=== PATIENT | male | born 1945 | race Two or more races ===

== ENCOUNTER 2020-08-21 04:31 | Inpatient (IN) | payer MEDICARE, OTHER ==
[~2020-08-21] VITALS: Ht 162.6 cm; Wt 48.5 kg
--- NOTE | 2020-08-21 04:52 | NUR ---
CHARLEY CONTI FROM [facility] FOR LOW HGb. PER TRANSFER RECORD PT IS ON IV ZOSYN FOR UTI AND PNA AND WAS ALSO ON IVF HYDRATION AT THE FACILITY. PT ALERT AND RESPONSIVE TO QUESTIONS. BREATHING EVENLY. NO SOB. AND HOLDING SATURATION OF 100% ON RA. AFEBRILE (ORAL AND RECTAL) W/ NO C/O PAIN OR DISCOMFORT. PT WAS TRANSFERRED TO BED 16 AND WAS PLACED ON A MONITOR .
--- NOTE | 2020-08-21 04:56 | NUR ---
DR. MENDOZA SPEAKING WITH DR. MAGDI RIVERA
[2020-08-21] MEDS ORDERED: PANT40TA49 PO (05:05)
[2020-08-21] MEDS ORDERED: DOCU-141 PO (05:05)
[2020-08-21] MEDS ORDERED: APIX2.5T PO (05:05)
[2020-08-21] MEDS ORDERED: SIME80TA15 PO (05:05)
[2020-08-21] MEDS ORDERED: ATOR20TA PO (05:05)
[2020-08-21] MEDS ORDERED: ZINC220T4 PO (05:05)
[2020-08-21] MEDS ORDERED: MIRT-121 PO (05:05)
[2020-08-21] MEDS ORDERED: TAMS-12 PO (05:05)
[2020-08-21] MEDS ORDERED: CARB-93 PO (05:05)
[2020-08-21] MEDS ORDERED: ASCO500T87 PO (05:05)
[2020-08-21] MEDS ORDERED: AMLO2.5T4 PO (05:05)
[2020-08-21] MEDS ORDERED: SENN-18 PO (05:05)
[2020-08-21] MEDS ORDERED: MULT-754 PO (05:05)
[2020-08-21 05:29] LABS: BASOPHILS # (AUTO) 0.1 /CMM (0.0-0.2); BASOPHILS % (AUTO) 0.4 % (0.0-2.0); EOSINOPHILS % (AUTO) 0.2 % (0.0-6.0); HEMATOCRIT 24 % (39-51); HEMOGLOBIN 7.8 g/dL (13.5-17.5); LYMPHOCYTES # (AUTO) 1.4 /CMM (0.8-4.8); LYMPHOCYTES % (AUTO) 9.4 % (20.0-44.0); MEAN CORPUSCULAR HGB CONC 33 g/dl (31.0-36.0); MEAN CORPUSCULAR VOLUME 95 fL (80-96); MONOCYTES # (AUTO) 0.5 /CMM (0.1-1.30); MONOCYTES % (AUTO) 3.2 % (2.0-12.0); NEUTROPHILS # (AUTO) 13.1 /CMM (1.8-8.9); NEUTROPHILS % (AUTO) 86.8 % (43.0-81.0); PLATELET COUNT (AUTO) 711 /CMM (150-450); WHITE BLOOD COUNT (AUTO) 15.1 K/uL (4.3-11.0)
[2020-08-21] MEDS ORDERED: IV NS 0.9% 1,000 ML IV ONE (05:30)
[2020-08-21 05:38] LABS: BILIRUBIN,URINE NEGATIVE (NEGATIVE); COLOR,URINE YELLOW (YELLOW); LEUKOCYTE ESTERASE ,URINE LARGE (NEGATIVE); NITRITE, URINE NEGATIVE (NEGATIVE); PH,URINE 8.5 (5.0-8.0); PROTEIN,URINE 100 mg/dl (NEGATIVE); UGLUCOSE NEGATIVE (NEGATIVE); UROBILINOGEN,URINE 0.2 EU/dL (0.2)
[2020-08-21 05:48] LABS: OCCULT BLOOD STOOL NEGATIVE (NEGATIVE)
[2020-08-21 05:49] LABS: RBC,URINE TOO NUMEROUS TO COUN /HPF (0-2); WBC,URINE TOO NUMEROUS TO COUN /HPF (0-3)
[2020-08-21 05:50] LABS: BACTERIA,URINE 3+ /HPF (None Seen); SQUAMOUS EPITHELIAL CELL,UR Few /HPF (None Seen); TRIPLE PHOSPHATE CRYSTAL,UR Many /HPF (None Seen); URINE AMORPHOUS PHOSPHATES Many /HPF (None Seen)
--- NOTE | 2020-08-21 05:51 | NUR ---
tech at bedside for xray
[2020-08-21 06:04] LABS: ALANINE AMINOTRANSFERASE 55 U/L (12-78); ALBUMIN 1.7 g/dL (3.4-5.0); ALKALINE PHOSPHATASE 117 U/L (46-116); ASPARTATE AMINOTRANSFERASE 72 U/L (15-37); BILIRUBIN,DIRECT 0.2 mg/dL (0.0-0.2); BILIRUBIN,TOTAL 0.4 mg/dL (0.2-1.0); CALCIUM, SERUM 8.7 mg/dL (8.5-10.1); CARBON DIOXIDE 23 mmol/L (21-32); CHLORIDE 101 mmol/L (98-107); CREATININE 1.2 mg/dL (0.6-1.3); GLUCOSE 117 mg/dL (74-106); POTASSIUM 3.7 mmol/L (3.5-5.1); SODIUM SERUM 135 mmol/L (136-145); TOTAL PROTEIN, SERUM 7.1 g/dL (6.4-8.2); UREA NITROGEN, BLOOD 31 mg/dL (7-18)
--- NOTE | 2020-08-21 07:43 | NUR ---
RECEIVED REPORT FROM REDD MORENO FOR VINICIO. PT IS AWAKE AND ALERT, NOT IN RESPIRATORY DISTRESS, V/S STABLE, KEPT RESTED AND COMFORTABLE. WILL CONTINUE TO MONITOR.
[2020-08-21] MEDS ORDERED: ACET-868 PO (07:57)
[2020-08-21] MEDS ORDERED: POLY17PO4 PO (07:57)
[2020-08-21] MEDS ORDERED: IPRA3AMP23 IH (07:57)
[2020-08-21] MEDS ORDERED: LIDO30AD10 TP (07:57)
[2020-08-21] MEDS ORDERED: NA P133E RC (07:57)
[2020-08-21] MEDS ORDERED: FINA5TAB11 PO (07:57)
[2020-08-21] MEDS ORDERED: COLL30OI TP (07:57)
[2020-08-21] MEDS ORDERED: SENN-301 PO (07:57)
[2020-08-21] MEDS ORDERED: ARGI1POW13 PO (07:57)
[2020-08-21] MEDS ORDERED: BISA5TAB10 PO (07:57)
[2020-08-21] MEDS ORDERED: HYDR-4384 PO (07:57)
[2020-08-21] MEDS ORDERED: ONDANSETRON HCL/PF 4 MG/2 ML VIAL IVP PRN (08:00)
[2020-08-21] MEDS ORDERED: ACETAMINOPHEN 650 MG/SUPP.RECT RC PRN (08:00)
[2020-08-21] MEDS ORDERED: PANTOPRAZOLE 40 MG VIAL IV SCH (09:00)
[2020-08-21] MEDS: PIPERACILLIN /TAZOBACTAM 3.375 G in IV D5W 50 ML IV SCH ×2 (09:13→15:06)
[2020-08-21] MEDS ORDERED: PANTOPRAZOLE 40 MG VIAL ONE ×2 (09:14→16:40)
[2020-08-21] MEDS: VANCOMYCIN 1 GM in IV D5W 250 ML IV SCH (09:52)
--- NOTE | 2020-08-21 15:54 | NUR ---
SPOKED TO PT'S DAUGHTER HINA THEY AGREED INCASE THE PT NEED BLOOD TRANSFUSION.
[2020-08-21] MEDS: PANTOPRAZOLE 40 MG VIAL IV SCH (16:39)
--- NOTE | 2020-08-21 19:08 | NUR ---
TOOK OVER PT CARE. PT AWAKE IN BED, ON MONITOR AND PULSE OX. VIALS REMAIN STABLE. UPON READING NIDA Jacobs NP'S NOTE, PT WILL HAVE BLOOD TRANSFUSED TO KEEP HGB ABOVE 7. UPON CHECKING BLOOD WORK, PT'S HGB IS 7.8. WILL CONTINUE TO MONITOR.
[2020-08-21] MEDS: IV D5/ 0.9% NACL 1,000 ML IV PRN (19:50)
[2020-08-21] MEDS: MEROPENEM 1 G in IV NS 0.9% 100 ML IV SCH (20:05)
[2020-08-21] MEDS ORDERED: MEROPENEM 500 MG in IV NS 0.9% 50 ML IV SCH (21:00)
--- NOTE | 2020-08-22 00:49 | NUR ---
LF 18G IV INFILTRATED. IV RAC 20G PLACED.
--- NOTE | 2020-08-22 02:13 | NUR ---
PT REPOSITIOEND, VSS.
[2020-08-22 04:37] LABS: BASOPHILS % (AUTO) 0.1 % (0.0-2.0); EOSINOPHILS % (AUTO) 0.1 % (0.0-6.0); HEMATOCRIT 21 % (39-51); HEMOGLOBIN 7.1 g/dL (13.5-17.5); LYMPHOCYTES # (AUTO) 1.2 /CMM (0.8-4.8); LYMPHOCYTES % (AUTO) 7.1 % (20.0-44.0); MEAN CORPUSCULAR HGB CONC 34 g/dl (31.0-36.0); MEAN CORPUSCULAR VOLUME 94 fL (80-96); MONOCYTES # (AUTO) 0.5 /CMM (0.1-1.30); NEUTROPHILS # (AUTO) 14.6 /CMM (1.8-8.9); NEUTROPHILS % (AUTO) 89.7 % (43.0-81.0); PLATELET COUNT (AUTO) 731 /CMM (150-450); RED BLOOD CELL COUNT(AUTO) 2.25 MIL/uL (4.5-6.0); WHITE BLOOD COUNT (AUTO) 16.3 K/uL (4.3-11.0)
[2020-08-22] MEDS: VANCOMYCIN 1 GM in IV D5W 250 ML IV SCH ×2 (04:45→23:14)
[2020-08-22 05:02] LABS: ALANINE AMINOTRANSFERASE 51 U/L (12-78); ALBUMIN 1.6 g/dL (3.4-5.0); ALKALINE PHOSPHATASE 101 U/L (46-116); ASPARTATE AMINOTRANSFERASE 34 U/L (15-37); BILIRUBIN,TOTAL 0.4 mg/dL (0.2-1.0); CALCIUM, SERUM 8.3 mg/dL (8.5-10.1); CARBON DIOXIDE 24 mmol/L (21-32); CHLORIDE 104 mmol/L (98-107); CREATININE 1.2 mg/dL (0.6-1.3); GLUCOSE 93 mg/dL (74-106); PHOSPHORUS 3.5 mg/dL (2.5-4.9); POTASSIUM 3.9 mmol/L (3.5-5.1); SODIUM SERUM 136 mmol/L (136-145); TOTAL PROTEIN, SERUM 6.8 g/dL (6.4-8.2); UREA NITROGEN, BLOOD 29 mg/dL (7-18)
--- NOTE | 2020-08-22 05:14 | NUR ---
PT NOTED TO HAVE MULTIPLE WOUNDS. PT'S WOUNDS WERE CLEANED AND REPACKED.
--- NOTE | 2020-08-22 05:16 | NUR ---
TOTAL PATIENT CARE DONE. PT REPOSITIONED.
--- NOTE | 2020-08-22 06:50 | NUR ---
PT AWAKE, REQUESTING TO BE REPOSITIONED. REPOSITIONED, VITALS STABLE.
--- NOTE | 2020-08-22 07:24 | NUR ---
RECEIVED REPORT FROM REDD AVILA FOR VINICIO. PT IS AAOX2, NOT IN RESPIRATORY DISTRESS, V/S STABLE, KEPT RESTED AND COMFORTABLE. WITH ONGOING IVF NS. WILL CONTINUE TO MONITOR.
[2020-08-22] MEDS: MEROPENEM 1 G in IV NS 0.9% 100 ML IV SCH ×2 (08:20→19:22)
[2020-08-22] MEDS: PANTOPRAZOLE 40 MG VIAL IV SCH ×2 (09:03→17:05)
[2020-08-22] MEDS ORDERED: PANTOPRAZOLE 40 MG VIAL ONE ×2 (09:12→17:06)
--- NOTE | 2020-08-22 09:50 | NUR ---
WOUND CARE NURSE AT BEDSIDE FOR EVAL.
--- NOTE | 2020-08-22 10:22 | NUR ---
WOUND CARE CONSULT: PT PRESENTS WITH BILATERAL HIP PURULENT STAGE 4 ULCERS, SACRAL STAGE 4 ULCER WELL RT FOOT INTACT DEEP TISSUE INJURIES, LEFT LOWER LEG DEEP TISSUE INJURY AND FOUL PURULENT LEFT FOOT WOUND, ALL PRESENT ON ADMISSION. RECOMMEND SURGICAL CONSULT AND DPM CONSULT. DR MOSES AND DR BURNS NOTIFIED OF CONSULT REQUESTS. RECOMMENDATIONS MADE FOR WOUND CARE AND SKIN PROTECTION. DISCUSSED WITH NURSING STAFF. DEFER TO DPM FOR LOWER EXTREMITIES. PT NOTED TO HAVE CONTRACTED EXTREMITIES, MAKING OFFLOADING DIFFICULT. MD IN AGREEMENT WITH PLAN OF CARE.
[2020-08-22] MEDS: Z GUARD REMEDY 2 OZ OINT TP SCH (10:57)
[2020-08-22] MEDS: DAKINS QUARTER STRENGTH (0.125%) 480 ML BOTTLE TOP SCH (10:57)
[2020-08-22] MEDS ORDERED: LIDOCAINE 1%-EPI 1:100,000 50 ML VIAL IJ ONE (13:30)
[2020-08-22] MEDS ORDERED: SILVER NITRATE APPLICATOR 1 EA BOX TP SCH (13:30)
[2020-08-22] MEDS ORDERED: LIDOCAINE 0.5%-EPI 1:200,000 50 ML VIAL ONE (13:32)
--- NOTE | 2020-08-22 13:59 | NUR ---
Masood amaya in ED - 08/22/20 at 1414 by VINICIO AT BEDSIDE FOR L FOOT DEBRIDEMENT.
[2020-08-22] MEDS ORDERED: LIDOCAINE 0.5%-EPI 1:200,000 50 ML VIAL IJ ONE (14:00)
--- NOTE | 2020-08-22 14:00 | NUR ---
AT BEDSIDE FOR L FOOT DEBRIDEMENT.
--- NOTE | 2020-08-22 14:40 | NUR ---
WOUND CULTURE SPECIMEN OBTAINED AND SENT TO LAB.
[2020-08-22] MEDS: IV D5/ 0.9% NACL 1,000 ML IV PRN ×2 (15:17→19:22)
--- NOTE | 2020-08-22 17:08 | NUR ---
RM 312-1
--- NOTE | 2020-08-22 17:15 | NUR ---
REPORT GIVEN TO GILBERT FOR VINICIO.
--- NOTE | 2020-08-22 17:25 | NUR ---
TELE/RN NOTE PATIENT RECEIVED IN A GURNEY FROM ER. TRANSFERED THE PATIENT TO BED. WILL CONTINUE TO MONITOR.
[2020-08-22 18:38] VITALS: BP 112/65
--- NOTE | 2020-08-22 19:06 | NUR ---
RN NOTE THE PATIENT IN BED. ALERT AND ORIENTED X1, ABLE TO MAKE NEEDS KNOWN VERBALLY. DENIES PAIN. IN ROOM AIR AND OXYGEN SATURATION LEVEL IN ROOM AIR IS AT 96%. DENIES SOB. RESPIRATION REGULAR AND UNLABORED. CORKY G 18 PATENT AND SALINE LOCKED. BED LOW AND LOCKED. SIDE RAILS UP X3. CALL LIGHT WITHIN REACH. WILL ENDORSE TO SAP TECHNICAL DEVELOPER.
--- NOTE | 2020-08-22 20:53 | NUR ---
MS/TELE/RN DURING INITIAL SHIFT ROUNDING, PATIENT WAS IN BED AWAKE, ALERT, COMFORTABLE, NO C/O PAIN, NO DISTRESS NOTED, CALL LIGHT IN REACH, FALL PRECAUTIONS PER PROTOCOL, WILL MONITOR.
[2020-08-22 21:25] VITALS: BP 112/63
[2020-08-23 01:32] VITALS: BP 107/69
--- NOTE | 2020-08-23 01:54 | NUR ---
MS/TELE/RN PATIENT IS SLEEPING AT THIS TIME, APPEAR COMFORTABLE, NO SIGNS OF DISTRESS NOTED, CALL LIGHT IN REACH, WILL CONTINUE TO MONITOR.
[2020-08-23 05:22] VITALS: BP 90/52
--- NOTE | 2020-08-23 06:01 | NUR ---
MS/TELE/RN LO CATHETER WAS CHANGED ORDERED BY THE INFECTIOUS DISEASE MD. USED F16, PATIENT TOLERATED THE PROCEDURE. PATIENT IS AWAKE , AND ALERT, NO SIGNS OF DISTRESS NOTED, ALL NEEDS ATTENDED AT THIS TIME, WILL CONTINUE TO MONITOR.
[2020-08-23 07:18] LABS: CALCIUM, SERUM 8.2 mg/dL (8.5-10.1); POTASSIUM 3.1 mmol/L (3.5-5.1)
--- NOTE | 2020-08-23 07:30 | NUR ---
WOUND CARE: PT FOLLOWED BY DR MOSES AND DR BURNS FOR WOUND TREATMENT PLAN. PT IS ON NOMI ISOFLEX LOW AIRLOSS BED. ALL SKIN PROTECTION MEASURES IN PLACE AND DISCUSSED WITH NURSING STAFF. MD IN AGREEMENT WITH PLAN OF CARE.
[2020-08-23 08:00] VITALS: BP 97/56
[2020-08-23] MEDS: DAKINS QUARTER STRENGTH (0.125%) 480 ML BOTTLE TOP SCH ×2 (09:00)
[2020-08-23] MEDS: UREA 10% -AHA 4% CREAM 57 GM TUBE TP SCH (09:00)
[2020-08-23] MEDS: PANTOPRAZOLE 40 MG VIAL IV SCH (09:01)
[2020-08-23] MEDS: MEROPENEM 1 G in IV NS 0.9% 100 ML IV SCH ×2 (09:03→20:03)
[2020-08-23] MEDS: Z GUARD REMEDY 2 OZ OINT TP SCH (09:03)
[2020-08-23] MEDS ORDERED: POTASSIUM CHLORIDE 20 MEQ TAB.PRT.SR PO SCH (11:00)
[2020-08-23] MEDS: POTASSIUM CL. PREMIX PERIPHER. 50 ML IV SCH ×4 (12:50→18:47)
[2020-08-23 16:00] VITALS: BP 107/74
[2020-08-23] MEDS: VANCOMYCIN 1 GM in IV D5W 250 ML IV SCH (16:38)
[2020-08-23] MEDS: IV D5/ 0.9% NACL 1,000 ML IV PRN (18:47)
--- NOTE | 2020-08-23 19:32 | NUR ---
ASBESTOS SHINGLE INSPECTOR NOTES PATIENT IN BED RESTING NO SOB OR ACUTE DISTRESS NOTED. ALL DUE MEDICATIONS ADMINISTERED. ALL NEEDS MET. SAFETY MEASURES IN PLACE. ENDORSED CARE TO PM SHIFT.
--- NOTE | 2020-08-23 20:00 | NUR ---
RN NOTES RECEIVED PT. AWAKE ON BED, A/OX1, SR ON TELE MONITOR HR-68, NOT IN DISTRESS , F/C DRAINING CLEAR YELLOW URINE, NO PAIN NOTED, SIDERAILSUPX2, CONTINUE TO MONITOR
[2020-08-24] VITALS (9 sets, daily range): BP systolic 114–124; BP diastolic 71–80
[2020-08-24 06:36] LABS: BASOPHILS # (AUTO) 0.3 /CMM (0.0-0.2); EOSINOPHILS % (AUTO) 0.5 % (0.0-6.0); HEMATOCRIT 21 % (39-51); LYMPHOCYTES # (AUTO) 1.3 /CMM (0.8-4.8); LYMPHOCYTES % (AUTO) 12.1 % (20.0-44.0); MEAN CORPUSCULAR HGB CONC 33 g/dl (31.0-36.0); MEAN CORPUSCULAR VOLUME 97 fL (80-96); MONOCYTES # (AUTO) 0.4 /CMM (0.1-1.30); NEUTROPHILS # (AUTO) 8.9 /CMM (1.8-8.9); NEUTROPHILS % (AUTO) 80.4 % (43.0-81.0); PLATELET COUNT (AUTO) 631 /CMM (150-450); RED BLOOD CELL COUNT(AUTO) 2.14 MIL/uL (4.5-6.0)
--- NOTE | 2020-08-24 07:00 | NUR ---
RN NOTES AWAKE, MORNING CARE RENDERED, NOT IN DISTRESS, PT. NEEDS ATTENDED
[2020-08-24 07:09] LABS: CALCIUM, SERUM 8.3 mg/dL (8.5-10.1); PHOSPHORUS 2.5 mg/dL (2.5-4.9); POTASSIUM 3.7 mmol/L (3.5-5.1)
[2020-08-24 07:58] LABS: HEMOGLOBIN 6.8 g/dL (13.5-17.5)
[2020-08-24] MEDS: MEROPENEM 1 G in IV NS 0.9% 100 ML IV SCH ×2 (08:59→20:30)
[2020-08-24] MEDS: UREA 10% -AHA 4% CREAM 57 GM TUBE TP SCH (09:02)
[2020-08-24] MEDS: PANTOPRAZOLE 40 MG VIAL IV SCH (09:02)
[2020-08-24] MEDS: DAKINS QUARTER STRENGTH (0.125%) 480 ML BOTTLE TOP SCH ×2 (09:02→09:03)
[2020-08-24] MEDS: Z GUARD REMEDY 2 OZ OINT TP SCH (09:03)
[2020-08-24] MEDS: VANCOMYCIN 1 GM in IV D5W 250 ML IV SCH (10:00)
[2020-08-24 12:05] LABS: BAND % (MANUAL) 1 % (0.0-5.0); LYMPHOCYTES % (MANUAL) 12 % (16-48); MONOCYTES % (MANUAL) 3 % (0-11.0); NEUTROPHILS % (MANUAL) 84 (42-76)
--- NOTE | 2020-08-24 16:15 | NUR ---
DIETARY SERVER NOTES PATIENT WAS SEEN BY DR. MINER, DEBRIDEMENT WAS DONE. PATIENT TOLERATED PROCEDURE WELL. ORDERS GIVEN FOR ONE MORE UNIT OF PRBC. ORDERS NOTED AND CARRIED OUT.
[2020-08-24] MEDS: IV D5/ 0.9% NACL 1,000 ML IV PRN (18:49)
--- NOTE | 2020-08-24 19:30 | NUR ---
RN NOTES RECEIVED PT. AWAKE ON BED, A/OX2, BLOOD TRANSFUSION RUNNING, NO DISTRESS NOTED, SR ON TELE MONITOR HR-65, F/C DRAINING CLEAR YELLOW URINE, CALL LIGHT WITHIN REACH, SIDERAILSUPX2, CONTINUE TO MONITOR
--- NOTE | 2020-08-24 19:31 | NUR ---
PULPER NOTES PATIENT IN BED RESTING . CURRENTLY RECEIVING PRBC. TOLERATING IT WELL. NO SIGNS OF ADVERSE REACTION. ALL DUE MEDICATIONS ADMINISTERED. ALL NEEDS MET. NO ACUTE CHANGED DURING AM SHIFT. ENDORSED CARE TO PM SHIFT.
--- NOTE | 2020-08-24 20:15 | NUR ---
RN NOTES PRBC FINISHED, PT TOLERATING WELL, NO REACTION NOTED
[2020-08-25] VITALS (9 sets, daily range): BP systolic 106–135; BP diastolic 68–83
--- NOTE | 2020-08-25 00:18 | NUR ---
RN NOTES 2ND UNIT PRBC STARTED, V/S STABLE.. WILL CONTINUE TO MONITOR
--- NOTE | 2020-08-25 00:35 | NUR ---
RN NOTES NO REACTION WAS NOTED, , WILL CONTINUE TO MONITOR
--- NOTE | 2020-08-25 03:10 | NUR ---
RN NOTES blood finished at this time, no reaction noted, pt. tolerated it well
[2020-08-25 06:39] LABS: BASOPHILS # (AUTO) 0.1 /CMM (0.0-0.2); BASOPHILS % (AUTO) 0.6 % (0.0-2.0); EOSINOPHILS % (AUTO) 0.5 % (0.0-6.0); HEMATOCRIT 28 % (39-51); HEMOGLOBIN 9.5 g/dL (13.5-17.5); LYMPHOCYTES # (AUTO) 1.2 /CMM (0.8-4.8); LYMPHOCYTES % (AUTO) 11.6 % (20.0-44.0); MEAN CORPUSCULAR HGB CONC 34 g/dl (31.0-36.0); MEAN CORPUSCULAR VOLUME 91 fL (80-96); MONOCYTES # (AUTO) 0.4 /CMM (0.1-1.30); MONOCYTES % (AUTO) 3.8 % (2.0-12.0); NEUTROPHILS # (AUTO) 8.9 /CMM (1.8-8.9); NEUTROPHILS % (AUTO) 83.5 % (43.0-81.0); PLATELET COUNT (AUTO) 558 /CMM (150-450); WHITE BLOOD COUNT (AUTO) 10.7 K/uL (4.3-11.0)
--- NOTE | 2020-08-25 07:00 | NUR ---
RN NOTES AWAKE, MORNING CARE RENDERED, NOT IN DISTRESS, NO PAIN NOTED, CALL LIGHT WITHIN REACH, SIDERAILSUPX2, PT. NEEDS ATTENDED
[2020-08-25 07:11] LABS: CREATININE 0.9 mg/dL (0.6-1.3); MAGNESIUM 1.8 mg/dL (1.8-2.4); PHOSPHORUS 2.3 mg/dL (2.5-4.9); POTASSIUM 3.7 mmol/L (3.5-5.1)
--- NOTE | 2020-08-25 07:45 | NUR ---
RN Opening note Received patient in bed, able to responds all stimuli, Pt does no c/o pain or distress. Skin is warm to touch keep clean/dry, intact IV site on left upper arm g 20, respiratory even and unlabored on room air O2sat 100%. Kept locked bed with elevated HOB for aspiration precaution and ensure airway and lowest bed foe safety. Call light within reach, will continue to monitor.
[2020-08-25] MEDS: MEROPENEM 1 G in IV NS 0.9% 100 ML IV SCH ×2 (08:42→20:59)
[2020-08-25] MEDS: PANTOPRAZOLE 40 MG VIAL IV SCH (08:54)
[2020-08-25] MEDS ORDERED: VANCOMYCIN 1 GM in IV D5W 250 ML IV SCH (09:00)
[2020-08-25] MEDS: DAKINS QUARTER STRENGTH (0.125%) 480 ML BOTTLE TOP SCH ×2 (09:40→09:41)
[2020-08-25] MEDS: Z GUARD REMEDY 2 OZ OINT TP PRN (09:41)
[2020-08-25] MEDS: UREA 10% -AHA 4% CREAM 57 GM TUBE TP SCH (09:41)
[2020-08-25] MEDS: Z GUARD REMEDY 2 OZ OINT TP SCH (09:42)
[2020-08-25] MEDS ORDERED: K PHOS NEUTRAL 250 MG TABLET PO ONE (14:30)
--- NOTE | 2020-08-25 18:34 | NUR ---
RN closing Patient in bed resting, does no appears distress or discomfort. Skin is warm to touch, keep clean/dry, wound dressing changed, intact IV line on left upper arm. Respiratory even and unlabored on room air O2sat 100%. Kept elevated HOB for ensure air way and aspiration precaution and lowest bed for safety. Call light within reach, will endorse shift stacker.
[2020-08-26] VITALS: BP 139/86
[2020-08-26] MEDS: IV D5/ 0.9% NACL 1,000 ML IV PRN (03:02)
--- NOTE | 2020-08-26 03:05 | NUR ---
Found the pt's POLST( DNR) in the chart, needs an order from MD, will endorse to the next shift RN per charge nurse Chante.
--- NOTE | 2020-08-26 03:11 | NUR ---
Unable to do the wound treatments and dressings changed at this time, Dakin's solution bottle is empty, will endorse to the next shift RN, charge nurse aware.
[2020-08-26 04:51] VITALS: BP 142/91
[2020-08-26 06:42] LABS: BASOPHILS # (AUTO) 0.1 /CMM (0.0-0.2); BASOPHILS % (AUTO) 0.8 % (0.0-2.0); HEMATOCRIT 29 % (39-51); HEMOGLOBIN 9.5 g/dL (13.5-17.5); LYMPHOCYTES # (AUTO) 1.5 /CMM (0.8-4.8); LYMPHOCYTES % (AUTO) 15.5 % (20.0-44.0); MEAN CORPUSCULAR HGB CONC 33 g/dl (31.0-36.0); MEAN CORPUSCULAR VOLUME 94 fL (80-96); MONOCYTES # (AUTO) 0.5 /CMM (0.1-1.30); MONOCYTES % (AUTO) 4.8 % (2.0-12.0); NEUTROPHILS # (AUTO) 7.5 /CMM (1.8-8.9); NEUTROPHILS % (AUTO) 77.9 % (43.0-81.0); PLATELET COUNT (AUTO) 488 /CMM (150-450); RED BLOOD CELL COUNT(AUTO) 3.05 MIL/uL (4.5-6.0); WHITE BLOOD COUNT (AUTO) 9.6 K/uL (4.3-11.0)
--- NOTE | 2020-08-26 07:02 | NUR ---
CHANNEL MARKETING SPECIALIST CLOSING NOTES: PATIENT IN BED, ASLEEP,AROUSABLE. A/OX 2-3.NO S/S OF DISTRESS NOTED. CALL LIGHT WITHIN REACH. BED ALARM ON. BED IN LOWEST AND LOCKED POSITION. NO COMPLAIN OF PAIN. OFFLOADED, TURNED Q 2HOURS. LO CATHETER INTACT.
[2020-08-26 07:33] LABS: CALCIUM, SERUM 8.3 mg/dL (8.5-10.1); CREATININE 0.9 mg/dL (0.6-1.3); PHOSPHORUS 2.6 mg/dL (2.5-4.9); POTASSIUM 3.6 mmol/L (3.5-5.1)
[2020-08-26 08:00] VITALS: BP 122/71
--- NOTE | 2020-08-26 08:05 | NUR ---
BRICKMASON APPRENTICE OPENING NOTE PATIENT IS IN BED RESTING. PATIENT IS IN NO ACUTE DISTRESS. NO SOB NOTED. PATIENT IS ON ROOM AIR. PATIENT IS ON TELE MONITOR READING SR 70s. SAFETY PRECAUTIONS ARE IN PLACE. BED IS LOCKED AND IN THE LOWEST POSITION. SIDE RAILS ARE UP, CALL LIGHT WITHIN REACH. WILL CONTINUE TO MONITOR THROUGH OUT THE SHIFT.
[2020-08-26] MEDS: MEROPENEM 1 G in IV NS 0.9% 100 ML IV SCH (08:48)
[2020-08-26] MEDS: PANTOPRAZOLE 40 MG VIAL IV SCH (08:49)
[2020-08-26] MEDS: UREA 10% -AHA 4% CREAM 57 GM TUBE TP SCH (08:53)
[2020-08-26] MEDS: Z GUARD REMEDY 2 OZ OINT TP SCH (08:54)
[2020-08-26] MEDS: DAKINS QUARTER STRENGTH (0.125%) 480 ML BOTTLE TOP SCH ×2 (08:55→08:56)
--- NOTE | 2020-08-26 08:56 | NUR ---
EMBALMER APPRENTICE NOTE PATIENT HAS DOUBLE ORDER FOR DAKINS SOLUTION
[2020-08-26 12:00] VITALS: BP 117/74
[2020-08-26] MEDS: CEFTRIAXONE 1 G in IV D5W 50 ML IV SCH (15:28)
[2020-08-26 16:00] VITALS: BP 137/86
[2020-08-26 20:00] VITALS: BP 132/77
--- NOTE | 2020-08-26 20:22 | NUR ---
MS BAGGAGE AGENT SUPERVISOR CLOSING NOTE PATIENT IS IN BED RESTING. PATIENT IS IN NO ACUTE DISTRESS. NO SOB NOTED. PATIENT IS ON ROOM AIR. PATIENT IS ON TELE MONITOR READING SR 70s. WOUND CARE PERFORMED ORDERED. SAFETY PRECAUTIONS ARE IN PLACE. BED OS LOCKED AND IN THE LOWEST POSITION. SIDE RAILS ARE ON, CALL LIGHT WITHIN REACH. ENDORSE PATIENT TO TEAM GUIDE FOR VINICIO.
[2020-08-27] VITALS: BP 145/77
--- NOTE | 2020-08-27 02:54 | NUR ---
MS RN OPENING NOTE: RECEIVED PATIENT IN BED AWAKE,ALERT AND ORIENTED X2. NO S/S OF RESPIRATORY DISTRESS, ON ROOM AIR, NO SOB, STABLE V/S. SAFETY PRECAUTIONS ARE IN PLACE. BED LOCKED AND IN THE LOWEST POSITION. SIDE RAILS UP, CALL LIGHT WITHIN REACH. WILL CONTINUE TO MONITOR THROUGHOUT SHIFT.
[2020-08-27 04:00] VITALS: BP 148/85
[2020-08-27 07:08] LABS: CALCIUM, SERUM 8.2 mg/dL (8.5-10.1); CREATININE 0.8 mg/dL (0.6-1.3); POTASSIUM 3.5 mmol/L (3.5-5.1)
--- NOTE | 2020-08-27 07:58 | NUR ---
CHEMICAL LIBRARIAN OPENING NOTE PATIENT IS IN BED RESTING. PATIENT IS IN NO ACUTE DISTRESS. NO SOB NOTED. PATIENT IS ON ROOM AIR. PATIENT IS ON TELE MONITOR READING SR 72 WITH PVCs. SAFETY PRECAUTIONS ARE IN PLACE. BED OS LOCKED AND IN THE LOWEST POSITION. SIDE RAILS ARE ON, CALL LIGHT WITHIN REACH. WILL CONTINUE TO MONITOR THROUGH OUT THE SHIFT.
[2020-08-27 08:00] VITALS: BP 128/82
--- NOTE | 2020-08-27 08:08 | NUR ---
MS RN CLOSING NOTE: PATIENT IN BED AWAKE, ALERT AND ORIENTED X2. NO S/S OF RESPIRATORY DISTRESS, ON ROOM AIR, NO SOB, STABLE V/S. SAFETY PRECAUTIONS ARE IN PLACE. BED LOCKED AND IN THE LOWEST POSITION. SIDE RAILS UP, CALL LIGHT WITHIN REACH. ENDORSED TO AM SHIFT FOR CONTINUITY OF CARE.
[2020-08-27] MEDS: DAKINS QUARTER STRENGTH (0.125%) 480 ML BOTTLE TOP SCH ×2 (09:00→10:07)
[2020-08-27] MEDS: PANTOPRAZOLE 40 MG VIAL IV SCH (10:03)
[2020-08-27] MEDS: UREA 10% -AHA 4% CREAM 57 GM TUBE TP SCH (10:08)
[2020-08-27] MEDS: Z GUARD REMEDY 2 OZ OINT TP SCH (10:08)
--- NOTE | 2020-08-27 10:18 | NUR ---
MS RN NOTE DISCHARGE PATIENT FROM TELE MONITOR.
[2020-08-27 16:00] VITALS: BP 127/75
[2020-08-27] MEDS: IV D5/ 0.9% NACL 1,000 ML IV PRN (16:26)
[2020-08-27] MEDS: CEFTRIAXONE 1 G in IV D5W 50 ML IV SCH (16:26)
--- NOTE | 2020-08-27 19:16 | NUR ---
MS RN CLOSING NOTE PATIENT IS IN BED RESTING. PATIENT IS IN NO ACUTE DISTRESS. NO SOB NOTED. PATIENT IS ON ROOM AIR. WOUND CARE PERFORMED ORDERED. SAFETY PRECAUTIONS ARE IN PLACE. BED OS LOCKED AND IN THE LOWEST POSITION. SIDE RAILS ARE ON, CALL LIGHT WITHIN REACH. ENDORSE PATIENT TO CARD GAME OPERATOR FOR VINICIO.
--- NOTE | 2020-08-27 23:41 | NUR ---
PLUG CUTTER OPENING NOTE: RECEIVED PATIENT LAYING ON BED, AWAKE, A/O X2. ON ROOM AIR, NO S/S OF RESPIRATORY DISTRESS, CALM, ON ROOM AIR, NO SOB, PATIENT IS ABLE TO MAKE NEEDS KNOWN. NO C/O PAIN. SAFETY PRECAUTIONS ARE IN PLACE. BED LOCKED AND IN THE LOWEST POSITION. SIDE RAILS UP, CALL LIGHT WITHIN REACH. WILL CONTINUE TO MONITOR THROUGHOUT SHIFT.
[2020-08-28 06:26] LABS: BASOPHILS # (AUTO) 0.1 /CMM (0.0-0.2); BASOPHILS % (AUTO) 0.8 % (0.0-2.0); EOSINOPHILS % (AUTO) 0.5 % (0.0-6.0); HEMATOCRIT 29 % (39-51); HEMOGLOBIN 9.8 g/dL (13.5-17.5); LYMPHOCYTES # (AUTO) 1.6 /CMM (0.8-4.8); MEAN CORPUSCULAR HGB CONC 34 g/dl (31.0-36.0); MEAN CORPUSCULAR VOLUME 92 fL (80-96); MONOCYTES # (AUTO) 0.4 /CMM (0.1-1.30); MONOCYTES % (AUTO) 4.2 % (2.0-12.0); NEUTROPHILS # (AUTO) 7.9 /CMM (1.8-8.9); NEUTROPHILS % (AUTO) 78.5 % (43.0-81.0); PLATELET COUNT (AUTO) 389 /CMM (150-450); RED BLOOD CELL COUNT(AUTO) 3.12 MIL/uL (4.5-6.0)
[2020-08-28 06:55] LABS: CALCIUM, SERUM 8.1 mg/dL (8.5-10.1); CREATININE 0.8 mg/dL (0.6-1.3); MAGNESIUM 1.8 mg/dL (1.8-2.4); PHOSPHORUS 2.4 mg/dL (2.5-4.9); POTASSIUM 3.3 mmol/L (3.5-5.1)
--- NOTE | 2020-08-28 07:44 | NUR ---
RN NOTES PATIENT IN BED RESTING NO SOB OR ACUTE DISTRESS NOTED. PATIENT AWAKE. SAFETY MEASURES IN PLACE. WILL CONTINUE TO MONITOR.
--- NOTE | 2020-08-28 07:54 | NUR ---
ANIMATION ARTIST CLOSING NOTE: RECEIVED PATIENT LAYING ON BED, AWAKE, A/O X2. SKIN CHECK DONE, PICTURES TAKEN AND PLACED IN PATIENT CHART. NO S/S OF RESPIRATORY DISTRESS, PATIENT IS ABLE TO MAKE NEEDS KNOWN. NO C/O PAIN. SAFETY PRECAUTIONS ARE IN PLACE. BED LOCKED AND IN THE LOWEST POSITION. SIDE RAILS UP, CALL LIGHT WITHIN REACH. ENDORSED TO AM SHIFT.
[2020-08-28 08:00] VITALS: BP 162/100
[2020-08-28] MEDS: PANTOPRAZOLE 40 MG VIAL IV SCH (09:05)
[2020-08-28] MEDS: DAKINS QUARTER STRENGTH (0.125%) 480 ML BOTTLE TOP SCH ×2 (09:06)
[2020-08-28] MEDS: UREA 10% -AHA 4% CREAM 57 GM TUBE TP SCH (09:07)
[2020-08-28] MEDS: Z GUARD REMEDY 2 OZ OINT TP SCH (09:07)
[2020-08-28] MEDS: IV D5/ 0.9% NACL 1,000 ML IV PRN (14:57)
[2020-08-28] MEDS: CEFTRIAXONE 1 G in IV D5W 50 ML IV SCH (15:33)
[2020-08-28 16:00] VITALS: BP 132/80
--- NOTE | 2020-08-28 19:08 | NUR ---
MS RN NOTES PATIENT IN BED RESTING NO SOB OR ACUTE DISTRESS NOTED. ALL DUE MEDICATIONS ADMINISTERED. ALL NEEDS MET. NO CHANGED NOTED DURING AM SHIFT WILL ENDORSE CARE TO PM SHIFT.
--- NOTE | 2020-08-28 19:15 | NUR ---
MERCURY CRACKING TESTER OPENING NOTE: REPORT RECIEVED FROM HAZEL RAINEY. PATIENT IN BED, AWAKE, A/O X2. NO S/S OF RESPIRATORY DISTRESS, DENIES PAIN. SAFETY PRECAUTIONS IN PLACE. BED DOWN LOCKED AND IN LOWEST POSITION. SIDE RAILS UP X3, CALL LIGHT WITHIN REACH. WILL CONT TO MONITOR. Addendum: 08/28/20 at 2035 by MICHELLE BOYER RN PT IS MED SURGE STATUS.
[2020-08-28 20:43] VITALS: BP 145/77
[2020-08-28] MEDS ORDERED: PANTOPRAZOLE 40 MG VIAL ONE (21:24)
[2020-08-28] MEDS ORDERED: ONDANSETRON HCL/PF 4 MG/2 ML VIAL ONE (21:24)
[2020-08-29] MEDS: IV D5/ 0.9% NACL 1,000 ML IV PRN (05:35)
--- NOTE | 2020-08-29 06:36 | NUR ---
RN CLOSING NOTE: PATIENT IN BED, SEEN WITH EYES CLOSED. NO S/S OF RESPIRATORY DISTRESS, NO APPARENT PAIN. SAFETY PRECAUTIONS IN PLACE. BED DOWN LOCKED AND IN LOWEST POSITION. SIDE RAILS UP X3, CALL LIGHT WITHIN REACH. IV INFILTRATED LAST NIGHT. TO LEFT UPPER ARM. IV REMOVED NEW LINE STARTED TO LEFT HAND #24 BY DIANA RAINEY FROM ER PART OF IV TEAM. PT DIFFICULT STICK. WILL ENDORSE TO ONCOMING SHIFT. PT REFUSED LABS THIS AM, PER SAP BUSINESS OBJECTS DEVELOPER WANTS LABS DRAWN LATER THIS AM.
[2020-08-29 07:31] LABS: CALCIUM, SERUM 8.2 mg/dL (8.5-10.1); CREATININE 0.8 mg/dL (0.6-1.3); PHOSPHORUS 2.5 mg/dL (2.5-4.9); POTASSIUM 3.8 mmol/L (3.5-5.1)
--- NOTE | 2020-08-29 07:43 | NUR ---
MS RN OPENING NOTES RECEIVED PATIENT IN BED, ASLEEP. PATIENT ON ROOM AIR; BREATHING EVEN AND UNLABORED AT THIS TIME. NO S/S OF PAIN SUCH FACIAL GRIMACING, GUARDING OR MOANING. L HAND IV ACCESS G #24 RUNNING D5 NS @ 70 MLS/HR. SAFETY PRECAUTIONS IN PLACE; BED IN LOW POSITION AND LOCKED, RAILS UP X2, CALL LIGHT WITHIN REACH. WILL CONTINUE TO MONITOR PATIENT.
[2020-08-29 08:17] VITALS: BP 137/88
[2020-08-29] MEDS: DAKINS QUARTER STRENGTH (0.125%) 480 ML BOTTLE TOP SCH ×2 (08:17)
[2020-08-29] MEDS: UREA 10% -AHA 4% CREAM 57 GM TUBE TP SCH (08:18)
[2020-08-29] MEDS: Z GUARD REMEDY 2 OZ OINT TP SCH (08:18)
[2020-08-29] MEDS: Z GUARD REMEDY 2 OZ OINT TP PRN (08:18)
[2020-08-29] MEDS: PANTOPRAZOLE 40 MG VIAL IV SCH (08:19)
[2020-08-29 09:29] LABS: BASOPHILS % (AUTO) 0.4 % (0.0-2.0); EOSINOPHILS % (AUTO) 0.6 % (0.0-6.0); HEMATOCRIT 31 % (39-51); HEMOGLOBIN 10.2 g/dL (13.5-17.5); LYMPHOCYTES # (AUTO) 1.6 /CMM (0.8-4.8); LYMPHOCYTES % (AUTO) 17.4 % (20.0-44.0); MEAN CORPUSCULAR HGB CONC 33 g/dl (31.0-36.0); MEAN CORPUSCULAR VOLUME 92 fL (80-96); MONOCYTES # (AUTO) 0.3 /CMM (0.1-1.30); MONOCYTES % (AUTO) 3.6 % (2.0-12.0); PLATELET COUNT (AUTO) 400 /CMM (150-450); RED BLOOD CELL COUNT(AUTO) 3.36 MIL/uL (4.5-6.0)
[2020-08-29] MEDS ORDERED: UREA57CR TP (10:05)
[2020-08-29] MEDS ORDERED: SILV100S2 TP (10:05)
[2020-08-29] MEDS ORDERED: SODI473S8 TOP (10:05)
[2020-08-29] MEDS ORDERED: CEFT1PIG2 IV (10:05)
[2020-08-29 16:19] VITALS: BP_SYST 107; BP_SYST 146; BP_DIAS 66; BP_DIAS 76
[2020-08-29] MEDS: CEFTRIAXONE 1 G in IV D5W 50 ML IV SCH (17:09)
[2020-08-29] MEDS: MORPHINE SULFATE INJ 2 MG/ML DISP.SYRIN IV PRN (17:20)
--- NOTE | 2020-08-29 19:09 | NUR ---
MS RN CLOSING NOTES PATIENT REMAINS IN BED, DURING DAY AWAKE, A/O X2. PATIENT ON ROOM AIR; BREATHING EVEN AND UNLABORED DURING SHIFT. PAIN TREATED WITH PRN MEDICATION PER MD ORDER. L HAND IV ACCESS G #24 RUNNING D5 NS @ 70 MLS/HR. WOUND CARE DONE, DRESSINGS CHANGED. ALL NEEDS ATTENDED DURING THE DAY. SUPPOSED TO BE DISCHARGED BUT AWAITING PICC LINE INSERTION IN ORDER TO GO TO SNF. SAFETY PRECAUTIONS IN PLACE; BED IN LOW POSITION AND LOCKED, RAILS UP X2, CALL LIGHT WITHIN REACH. WILL ENDORSE TO CURTAIN FELLER BLINDSTITCH NURSE.
[2020-08-29 20:00] VITALS: BP 138/79
--- NOTE | 2020-08-29 20:26 | NUR ---
RECEIVED A CALL MONICA NAVARRO RE: PICC LINE INSERTION WILL BE DONE TOMORROW MORNING, CHARGE NURSE YENIFER REDMAN.
--- NOTE | 2020-08-29 20:33 | NUR ---
CALLED [facility]STON AND TALKED TO ASHLEIGH HALL: PATIENT WILL BE D/C TOMORROW MORNING AFTER THE PICC LINE INSERTION.
[2020-08-30 06:55] LABS: BASOPHILS % (AUTO) 0.5 % (0.0-2.0); EOSINOPHILS % (AUTO) 0.8 % (0.0-6.0); HEMATOCRIT 28 % (39-51); HEMOGLOBIN 9.5 g/dL (13.5-17.5); LYMPHOCYTES # (AUTO) 1.4 /CMM (0.8-4.8); LYMPHOCYTES % (AUTO) 17.2 % (20.0-44.0); MEAN CORPUSCULAR HGB CONC 34 g/dl (31.0-36.0); MEAN CORPUSCULAR VOLUME 92 fL (80-96); MONOCYTES # (AUTO) 0.4 /CMM (0.1-1.30); MONOCYTES % (AUTO) 4.4 % (2.0-12.0); NEUTROPHILS # (AUTO) 6.2 /CMM (1.8-8.9); NEUTROPHILS % (AUTO) 77.1 % (43.0-81.0); PLATELET COUNT (AUTO) 391 /CMM (150-450); RED BLOOD CELL COUNT(AUTO) 3.06 MIL/uL (4.5-6.0); WHITE BLOOD COUNT (AUTO) 8.1 K/uL (4.3-11.0)
--- NOTE | 2020-08-30 07:30 | NUR ---
MS/RN OPENING NOTE RECEIVED PATIENT RESTING IN BED SLEEPING. ALERT AND ORIENTED X 3. ABLE TO MAKE NEEDS KNOWN. NO COMPLAINTS OF PAIN THIS MORNING. PATIENT IS ON ROOM AIR WITH NO SIGNS OR SYMPTOMS OF RESPIRATORY DISTRESS NOTED. PATIENT SCHEDULED FOR PICC LINE INSERTION TODAY. CALL LIGHT WITHIN REACH. ASPIRATION, FALL AND SAFETY PRECAUTIONS MAINTAINED. WILL CONTINUE TO MONITOR.
[2020-08-30 07:45] LABS: CALCIUM, SERUM 7.8 mg/dL (8.5-10.1); CREATININE 0.9 mg/dL (0.6-1.3); MAGNESIUM 1.9 mg/dL (1.8-2.4); PHOSPHORUS 2.6 mg/dL (2.5-4.9); POTASSIUM 3.4 mmol/L (3.5-5.1)
[2020-08-30 08:00] VITALS: BP 161/97
[2020-08-30] MEDS: PANTOPRAZOLE 40 MG VIAL IV SCH (08:23)
[2020-08-30] MEDS: Z GUARD REMEDY 2 OZ OINT TP SCH (08:31)
[2020-08-30] MEDS: DAKINS QUARTER STRENGTH (0.125%) 480 ML BOTTLE TOP SCH ×2 (08:32→08:33)
[2020-08-30] MEDS: UREA 10% -AHA 4% CREAM 57 GM TUBE TP SCH (08:34)
[2020-08-30] MEDS ORDERED: POTASSIUM CHLORIDE 20 MEQ TAB.PRT.SR PO SCH ×2 (09:30→11:00)
[2020-08-30] MEDS: MORPHINE SULFATE INJ 2 MG/ML DISP.SYRIN IV PRN ×2 (14:23→20:42)
[2020-08-30] MEDS: IV D5/ 0.9% NACL 1,000 ML IV PRN (14:36)
[2020-08-30 16:00] VITALS: BP 120/88
[2020-08-30] MEDS: CEFTRIAXONE 1 G in IV D5W 50 ML IV SCH (16:12)
--- NOTE | 2020-08-30 18:30 | NUR ---
MS/RN CLOSING NOTE PATIENT CURRENTLY SLEEPING IN BED. ALERT AND ORIENTED X 3. ABLE TO MAKE NEEDS KNOWN. COMPLAINTS OF PAIN TO LEFT FOOT WHEN DRESSING WAS CHANGED BY MD. PATIENT MEDICATED WITH POSITIVE EFFECT. CONTINUES IV ABX. IV ACCESS TO LEFT HAND #24G INTACT AND PATENT. CONTINUES ON ROOM AIR WITH NO SIGNS OR SYMPTOMS OF RESPIRATORY DISTRESS NOTED. VS: BP 120/80 HR 84 RR 16 T 98.3 O2 SAT 98% RA. CALL LIGHT WITHIN REACH. ASPIRATION, FALL AND SAFETY PRECAUTIONS MAINTAINED. WILL CONTINUE TO MONITOR.
[2020-08-30 20:00] VITALS: BP 135/75
--- NOTE | 2020-08-30 20:00 | NUR ---
RN NOTE RECEIVED PT IN BED A/A/O X2. PT IS ON RA SATING 99%, HAS UNLABORED BREATHING. SAFETY MEASURES IN PLACE.
[2020-08-30] MEDS ORDERED: VANCOMYCIN 1 GM in IV D5W 250 ML IV ONE (21:00)
[2020-08-31] MEDS: IV D5/ 0.9% NACL 1,000 ML IV PRN (04:28)
[2020-08-31 07:09] LABS: CALCIUM, SERUM 7.9 mg/dL (8.5-10.1); CREATININE 1.1 mg/dL (0.6-1.3); POTASSIUM 3.7 mmol/L (3.5-5.1)
--- NOTE | 2020-08-31 07:20 | NUR ---
RN NOTE PT STAYED STABLE DURING MY SHIFT, NO ACUTE CHANGES ,REPORT GIVEN TO INCOMING SHIFT FOR VINICIO.
[2020-08-31 08:00] VITALS: BP 119/72
--- NOTE | 2020-08-31 08:12 | NUR ---
MS RN OPENING NOTE PATIENT IS IN BED RESTING. PATIENT IS IN NO ACUTE DISTRESS. NO SOB NOTED. PATIENT IS ON ROOM AIR. PATIENT IS AWAKE AND STABLE. PATIENT HAS LO CATHETER. SAFETY PRECAUTIONS ARE IN PLACE. BED IS LOCKED AND IN THE LOWEST POSITION. SIDE RAILS ARE UP, CALL LIGHT WITHIN REACH. WILL CONTINUE TO MONITOR THROUGH OUT THE SHIFT.
[2020-08-31] MEDS: MORPHINE SULFATE INJ 2 MG/ML DISP.SYRIN IV PRN ×2 (09:04→15:47)
[2020-08-31] MEDS: PANTOPRAZOLE 40 MG VIAL IV SCH (09:04)
[2020-08-31] MEDS: DAKINS QUARTER STRENGTH (0.125%) 480 ML BOTTLE TOP SCH ×2 (09:05→09:08)
[2020-08-31] MEDS: UREA 10% -AHA 4% CREAM 57 GM TUBE TP SCH (09:06)
[2020-08-31] MEDS: Z GUARD REMEDY 2 OZ OINT TP SCH (09:07)
[2020-08-31] MEDS ORDERED: VANCOMYCIN 0.75 GM in IV D5W 250 ML IV SCH (15:00)
[2020-08-31] MEDS: CEFTRIAXONE 1 G in IV D5W 50 ML IV SCH (15:19)
[2020-08-31 16:01] VITALS: BP 113/80
--- NOTE | 2020-08-31 17:50 | NUR ---
MS ELEVATOR CONSTRUCTOR SUPERVISOR NOTE PATIENT IS IN NO ACUTE DISTRESS. PATIENT IS IN STABLE CONDITION FOR DISCHARGE. NO SOB NOTED, BREATHING IS EVEN AND UNLABORED. VITALS SIGNS ARE WITHIN NORMAL LIMITS. PATIENT DISCHARGED WITH LO CATHETER AND RIGHT UPPER ARM MIDLINE. DISCHARGE INSTRUCTIONS GIVEN. WOUND CARE PROVIDED, PICTURES OF THE WOUNDS TAKEN. PATIENTS BELONGING LIST CHECKED AND SIGNED. PATIENT KEPT CLEAN, DRY AND COMFORTABLE THROUGHOUT THE SHIFT. PATIENTS NEEDS ASSESSED. PATIENT IV LINE AND ID BAND REMOVED. REPORT WAS GIVEN TO MATERIAL HANDLING SUPERVISOR AT [facility]. PATIENT WAS PICKED UP BY TWO DITCH WORKER VIA [facility]. MD IS AWARE OF DISCHARGE.
== END 2020-08-31 18:36 | DRG 853 ==
LOC: ER 04:33 → TRANSITION 05:06 → TELE 08-22 17:14 → MED 08-27 10:59
PROVIDERS: ADMIT Registered Nurse; ATTEND Registered Nurse
PROC: 0JBR0ZZ Excision of Left Foot Subcutaneous Tissue and Fascia, Open Approach (ICD-10-PCS; principal; 2020-08-21)
PROC: 30233N1 Transfusion of Nonautologous Red Blood Cells into Peripheral Vein, Percutaneous Approach (ICD-10-PCS; 2020-08-21)
PROC: 0QBP0ZZ Excision of Left Metatarsal, Open Approach (ICD-10-PCS; 2020-08-24)
PROC: 0QB30ZZ Excision of Left Pelvic Bone, Open Approach (ICD-10-PCS; 2020-08-28)
PROC: 0QB10ZZ Excision of Sacrum, Open Approach (ICD-10-PCS; 2020-08-28)
PROC: 0QB20ZZ Excision of Right Pelvic Bone, Open Approach (ICD-10-PCS; 2020-08-28)
PROC: 05HY33Z Insertion of Infusion Device into Upper Vein, Percutaneous Approach (ICD-10-PCS; 2020-08-31)
DX: A41.89 Other specified sepsis (principal); L89.894 Pressure ulcer of other site, stage 4; G93.41 Metabolic encephalopathy; R53.2 Functional quadriplegia; J15.9 Unspecified bacterial pneumonia; E87.1 Hypo-osmolality and hyponatremia; N39.0 Urinary tract infection, site not specified; I50.32 Chronic diastolic (congestive) heart failure; I69.359 Hemiplegia and hemiparesis following cerebral infarction affecting unspecified side; N13.8 Other obstructive and reflux uropathy; Z16.24 Resistance to multiple antibiotics; L02.612 Cutaneous abscess of left foot; I96 Gangrene, not elsewhere classified; M86.172 Other acute osteomyelitis, left ankle and foot; D64.9 Anemia, unspecified; N40.0 Benign prostatic hyperplasia without lower urinary tract symptoms; E78.5 Hyperlipidemia, unspecified; E88.09 Other disorders of plasma-protein metabolism, not elsewhere classified; I11.0 Hypertensive heart disease with heart failure; F02.80 Dementia in other diseases classified elsewhere, unspecified severity, without behavioral disturbance, psychotic disturbance, mood disturbance, and anxiety; G20 Parkinson's disease; Z20.822 Contact with and (suspected) exposure to COVID-19; Y95 Nosocomial condition; L97.519 Non-pressure chronic ulcer of other part of right foot with unspecified severity; L97.529 Non-pressure chronic ulcer of other part of left foot with unspecified severity; L89.891 Pressure ulcer of other site, stage 1; D69.6 Thrombocytopenia, unspecified; N40.1 Benign prostatic hyperplasia with lower urinary tract symptoms; B35.1 Tinea unguium; B96.89 Other specified bacterial agents as the cause of diseases classified elsewhere; L89.890 Pressure ulcer of other site, unstageable; M62.50 Muscle wasting and atrophy, not elsewhere classified, unspecified site; M62.40 Contracture of muscle, unspecified site; L89.126 Pressure-induced deep tissue damage of left upper back
CPT/HCPCS: 36415; 71045-TC; 73630-TC; 80048-TC; 80053-TC; 80076-TC; 80202-TC; 81001; 82272-TC; 82962-TC; 83605-TC; 83735-TC; 84100-TC; 84484-TC; 85025-TC; 85730-TC; 86850-TC; 87040-TC; 87070-TC; 87081-TC; 87086-TC; 87186-TC; 88305-TC; 88311-TC; 88312-TC; 88313-TC; 92526; 92611-TC; A6253; A6403; A6407; C1751; C9113; G0378; J0696; J2185; J2270; J2405; J2543; J3370; J3480; J3490; J7030; J7042; J7050; J7060; P9016-BL; U0003